=== PATIENT | female | born 1985 | race Caucasian/White ===

== ENCOUNTER 2017-12-31 08:44 | Emergency (ER) | payer MEDICAID ==
[2017-12-31] MEDS: ONDANSETRON (ODT) 4 MG TAB ODT (09:32)
[2017-12-31] MEDS: KETOROLAC 60 MG INJ IM (09:33)
[2017-12-31 09:50] LABS: ADD UMIC YES; UR ASCORBIC ACID NEGATIVE (NEGATIVE); UR BACTERIA FEW /HPF (NONE SEEN); UR BILIRUBIN (Dip) NEGATIVE (NEGATIVE); UR BLOOD (Dip) 3+ mg/dL (NEGATIVE); UR CLARITY CLOUDY (CLEAR); UR COLOR YELLOW (YELLOW); UR GLUCOSE (Dip) NEGATIVE (NEGATIVE); UR KETONES (Dip) NEGATIVE (NEGATIVE); UR LEUKOCYTE ESTERASE (Dip) 3+ Leu/ul (NEGATIVE); UR MUCUS FEW /HPF (NONE SEEN); UR NITRITE (Dip) POSITIVE (NEGATIVE); UR RBC 15 /HPF (0-5); UR SPECIFIC GRAVITY (Dip) 1.013 (1.003-1.030); UR SQUAMOUS EPITHELIAL CELL FEW /HPF (FEW); UR TOTAL PROTEIN (Dip) NEGATIVE (NEGATIVE); UR UROBILINOGEN (Dip) NEGATIVE (NEGATIVE); UR WBC 113 /HPF (0-5)
[2017-12-31] MEDS: LIDOCAINE 1% (MDV) 10 ML INJ INFIL (10:22)
[2017-12-31] MEDS: CEFTRIAXONE 1 GM INJ IM (10:22)
== END 2017-12-31 10:45 | disposition home or self-care (01) ==
LOC: FTE 10:45
DX: R10.31 Right lower quadrant pain (principal)
CPT/HCPCS: 76775; 81001; 81025; 87086; 96372; 99285-25

== ENCOUNTER 2018-10-22 15:36 | Emergency (ER) | payer MEDICAID ==
[2018-10-22] MEDS: LIDOCAINE 2% (MDV) 20 ML INJ INJ (18:12)
[2018-10-22] MEDS: ACETAMINOPHEN 325 MG TAB PO (18:13)
[2018-10-22] MEDS: DIPHTH/TET/ACEL PERTUSS (ADULT) 0.5 ML VIAL IM* (18:14)
== END 2018-10-22 19:55 | disposition home or self-care (01) ==
LOC: FTE 15:36
DX: S61.214A Laceration without foreign body of right ring finger without damage to nail, initial encounter (principal); W26.0XXA Contact with knife, initial encounter; Y92.9 Unspecified place or not applicable; Z23 Encounter for immunization
CPT/HCPCS: 12001; 90471; 90715; 99283-25